=== PATIENT | male | born 1930 ===

== ENCOUNTER 2016-10-22 18:40 | Inpatient (IN) | payer MEDICARE, BC ==
[~2016-10-22] VITALS: Ht 180.3 cm; Wt 67.8 kg
--- NOTE | 2016-10-22 18:46 | NUR ---
patient is agitated, confused and got out of bed. not following directions
--- NOTE | 2016-10-22 19:17 | NUR ---
Júnior Duval watching patient in room
--- NOTE | 2016-10-22 19:18 | NUR ---
report given to Jason
--- NOTE | 2016-10-22 19:19 | NUR ---
Patient BIB private ambulance for Medical Clearance and GPS admission. Patient arrives on 5150 hold for GD. Per hold, patient has been treated for a GI BLEED and was refusing care and not eating. To room 4B. Medically Cleared by ERMD at this time.
[2016-10-22] MEDS ORDERED: ACET-2154 PO (19:21)
[2016-10-22] MEDS ORDERED: ENAL1.2515 IV (19:21)
[2016-10-22] MEDS ORDERED: LORA2VIA32 IJ (19:21)
[2016-10-22] MEDS ORDERED: CLON0.1T PO (19:21)
[2016-10-22] MEDS ORDERED: DIVA125T2 PO (19:21)
[2016-10-22] MEDS ORDERED: LORA1TAB PO (19:21)
[2016-10-22 19:45] VITALS: BP 161/97
--- NOTE | 2016-10-22 19:45 | NUR ---
Pt. admitted to GPS, under care of Dr. Tam Belongs List completed
[2016-10-22] MEDS ORDERED: ACETAMINOPHEN 325 MG TABLET PO PRN (20:30)
[2016-10-22] MEDS ORDERED: LORAZEPAM 0.5 MG TABLET PO PRN (20:30)
[2016-10-22] MEDS ORDERED: MAG HYDROX/AL HYDROX/SIMETH 30 ML LIQUID UDC PO PRN (20:30)
[2016-10-22] MEDS ORDERED: MAGNESIUM HYDROXIDE 30 ML LIQUID UDC PO PRN (20:30)
[2016-10-22] MEDS ORDERED: OLANZAPINE 10 MG VIAL IM ONE ×2 (21:15→21:49)
--- NOTE | 2016-10-22 22:00 | NUR ---
received to care, from the emergency room, a transfer from [facility], where he was being treated for GI bleed, but became non compliant and attempted to awol from the medical floor. according to his , he was living a mirela independently before this had happened. upon arrival, he was very restless and agitated. unable to follow directions. IM zyprexa 3 mg was given at 2145. as of 2199, he remains agitated and restless. will continue to monitor closely..
[2016-10-22] MEDS ORDERED: LORAZEPAM 2 MG/1 ML VIAL IM ONE (22:30)
--- NOTE | 2016-10-22 22:30 | NUR ---
remains restless, and agitated. attempting to climb out of xavier chair. unable to follow directions. IM ativan 1 mg given at this time. will continue to monitor closely.
[2016-10-22] MEDS ORDERED: LORAZEPAM 2 MG/1 ML VIAL ONE (22:41)
--- NOTE | 2016-10-22 23:10 | NUR ---
appears calmer, now. assisted to bed. 1;1 staff assigned at bedside, to monitor pt for safety.
--- NOTE | 2016-10-22 23:45 | NUR ---
appears to be asleep. no distress noted.
[2016-10-23] MEDS ORDERED: Z GUARD REMEDY PASTE 57 GM TUBE TOP PRN (03:00)
[2016-10-23] MEDS: Z GUARD REMEDY PASTE 57 GM TUBE TOP SCH ×2 (08:49→20:44)
[2016-10-23] MEDS: OLANZAPINE ZYDIS 5 MG TAB.RAPDIS PO PRN (15:32)
[2016-10-23 16:00] VITALS: BP 125/79
[2016-10-23] MEDS: DIVALPROEX SPRINKLE 125 MG CAP.SPRINK PO SCH ×2 (17:00→20:43)
--- NOTE | 2016-10-23 17:30 | NUR ---
GPS/RN- PATIENT VISITED BY TODAY, QUESTIONS AND CONCERNS ADDRESSED REGARDING HOSPITALIZATION AND MEDICATIONS. SHE ALSO REPORTED SHE WANTS TO TAKE HER HOME HOWEVER SHE IS IN PROCESS OF CLEANING OUT SOME OF THE STUFF IN THEIR HOME, REPORTED THEY HAVE SOME "HOARDING ISSUES" AND THEIR BEDROOM IS ON THE 2ND FLOOR, SAFETY ISSUE. REPORTED TO STAVE LOG RIPSAW OPERATOR AND WILL REPORT TO .
--- NOTE | 2016-10-23 17:30 | NUR ---
GPS./RN- patient sitting up in [facility] this evening with table, sitter at side, patient visiting with , report received from Martha/DARYL Nava, patient anxious and angry, speaking with patient as she was explaining he will go home soon, patient proceeded to pound on table with fist and then posturing with fist with , no injury to reported at this time, denies. continue to monitor patient unpredictable.
[2016-10-23] MEDS: LORAZEPAM 1 MG TABLET PO PRN ×2 (18:21→19:50)
--- NOTE | 2016-10-23 18:24 | NUR ---
1700 patient agitated, confused refused to take his depakote 125 mg po and a prn ativan 1 mg po in spite of the explanation.Will continue to monitor behavior.
[2016-10-23 20:12] VITALS: BP 116/81
[2016-10-23] MEDS ORDERED: ACETAMINOPHEN 325 MG TABLET PO PRN (21:30)
--- NOTE | 2016-10-23 22:00 | NUR ---
received to care, up in gerichair, appearing restless, difficult to redirect, 1;1 sitter at side, for safety. PRN ativan wa sgiven at 1950. by 2099, he was calmer, and more manageable. depakote was given at bedtime(pt refused at 1700). as of 2199, he remains up in the xavier chair. remains restless. will continue to monitor closely.
[2016-10-23] MEDS: TEMAZEPAM 7.5 MG CAPSULE PO PRN (22:46)
--- NOTE | 2016-10-23 23:00 | NUR ---
assisted to bed.
--- NOTE | 2016-10-24 00:13 | NUR ---
CARLOZ restoril given for insomnia Addendum: 10/24/16 at 0126 by BRENDA MACE LVN restoril given at 9332
--- NOTE | 2016-10-24 00:40 | NUR ---
appears to be asleep. no dsitress noted.
--- NOTE | 2016-10-24 06:00 | NUR ---
slept 6.0 hours, total. assisted with AM care, and shower. remains calm and cooperative. currently asleep in bed. no distress noted.
[2016-10-24 06:59] LABS: BASOPHILS % (AUTO) 0.1 % (0.0-2.0); EOSINOPHILS # (AUTO) 0.5 K/uL (0.0-0.7); HEMATOCRIT 42.9 % (40-50); HEMOGLOBIN 14.6 G/DL (14.0-18.0); LYMPHOCYTES # (AUTO) 3.1 K/UL (0.8-4.8); LYMPHOCYTES % (AUTO) 25.6 % (20.5-51.5); MEAN CORPUSCULAR HEMOGLOBIN 33.3 UUG (27.0-31.0); MEAN CORPUSCULAR HGB CONC 34 g/dL (32.0-37.0); MEAN CORPUSCULAR VOLUME 97.8 FL (82.0-92.0); MONOCYTES # (AUTO) 0.9 K/UL (0.1-1.30); MONOCYTES % (AUTO) 7.8 % (0.0-11.0); NEUTROPHILS # (AUTO) 7.6 K/UL (1.8-8.9); NEUTROPHILS % (AUTO) 62.5 % (38.5-71.5); PLATELET COUNT (AUTO) 204 K/UL (150-450); RED BLOOD CELL COUNT(AUTO) 4.39 MIL/UL (4.7-6.1); WHITE BLOOD COUNT (AUTO) 12.1 K/UL (4.0-11.2)
[2016-10-24 07:04] LABS: ALANINE AMINOTRANSFERASE 26 U/L (16-63); ALKALINE PHOSPHATASE 94 U/L (50-136); ASPARTATE AMINOTRANSFERASE 43 U/L (15-37); BILIRUBIN,TOTAL 0.8 mg/dL (0.2-1.0); CARBON DIOXIDE 30 mmol/L (21-32); CHLORIDE 108 mmol/L (98-107); CREATININE 1.2 mg/dL (0.6-1.3); GLUCOSE 92 mg/dL (74-106); MAGNESIUM 2.1 mg/dL (1.8-2.4); PHOSPHOROUS 3.9 mg/dL (2.5-4.9); POTASSIUM 3.3 mmol/L (3.5-5.1); TOTAL PROTEIN, SERUM 7.3 g/dL (6.4-8.2); UREA NITROGEN, BLOOD 19 mg/dL (7-18)
[2016-10-24 07:16] LABS: THYROID STIMULATING HORMONE 11.008 mIU/mL (0.358-3.740)
[2016-10-24 07:30] VITALS: BP 129/68
[2016-10-24 07:32] LABS: BAND % (MANUAL) 1 % (0-10); EOSINOPHILS % (MANUAL) 1 % (0-8); LYMPHOCYTES % (MANUAL) 34 % (20-40); MONOCYTES % (MANUAL) 7 % (2-10); NEUTROPHILS % (MANUAL) 57 % (42-75)
[2016-10-24] MEDS: Z GUARD REMEDY PASTE 57 GM TUBE TOP SCH ×2 (09:37→20:13)
[2016-10-24] MEDS: DIVALPROEX SPRINKLE 125 MG CAP.SPRINK PO SCH ×2 (11:16→16:50)
[2016-10-24] MEDS: LORAZEPAM 1 MG TABLET PO PRN ×2 (11:59→20:31)
--- NOTE | 2016-10-24 11:59 | NUR ---
PATIENT IS UP ON THE CHAIR IN THE DAY ROOM WITH HIS SITTER BUT HE WAS GETTING AGITATED AND DISORIENTED UPSET AT THE TV AND WHAT THE OTHERS ARE WATCHING UNABLE TO REDIRECT PATIENT AT THIS TIME SO HE WAS MEDICATED WITH ATIVAN ORDERED AND WILL CONTINUE TO OBSERVE
[2016-10-24] MEDS ORDERED: POTASSIUM CHLORIDE 20 MEQ TAB.PRT.SR PO ONE (12:00)
--- NOTE | 2016-10-24 12:04 | NUR ---
GPS.RN- Dr Oswald Matthew here to see patient , discussed current labs this am potassium 3.3 and TSH 11.008. Verbal orders received for Potassium Chloride 40meq PO once and Synthroid 25mcg daily.
--- NOTE | 2016-10-24 12:06 | NUR ---
GPS.RN- SKIN Dr Oswald Matthew here to see patient , discussed patient rash on back side, saw patient .no new orders, no concern for isolation at this time. patient denies any itching or discomfort.
--- NOTE | 2016-10-24 14:43 | NUR ---
GPS/RN- Dr Tam notified of living situation reported by , endorsed to social worker clinical as well about Home Health needed on discharge for follow up
--- NOTE | 2016-10-24 15:23 | NUR ---
DR BAKER HERE TO SEE PATIENT SPOKE WITH THE PATIENTS AT LENGTH OVER THE PHONE.HIS HOLD WAS RENEWED TO 14 DAY.
--- NOTE | 2016-10-24 15:40 | NUR ---
Initial discharge instructions: The patient resides at home with his [[id number] [place] [address]; [phone]]. JOHNSON spoke with the patient's Wilma Whyte [phone] who stated that she would like to take the patient upon upon discharge. JOHNSON will speak with patient, family, and MD regarding most appropriate discharge plans. SS will form a safe and proper discharge plan.
[2016-10-24 16:00] VITALS: BP 126/90
--- NOTE | 2016-10-24 17:46 | NUR ---
SITING UP ON THE CHAIR IN HIS ROOM EATING DINNER LOW ENERGY BUT IS COOPERATIVE AND COMPLIANT WITH HIS MEDICATIONS REMAIN ON ONE ON ONE SITTER FOR SAFETY AND WILL CONTINUE TO OBSERVE.
--- NOTE | 2016-10-24 18:23 | NUR ---
GPS/RN- Patient visiting with his this evening. patient sitting next to , holding patients hand, during conversation, patient anxious, sad and irritable, squeezing her right hand excessively, heard yell "ouch", some redness noted on her hand. patient behavior escalating at this time, believes is here to pick him up redirected. patient redirected as to why he hurt his , he verbalized "she hurt me first". patient denies any injury at this time. patient Wilma left. patient redirected again as to reason for admission and hold status and safety of being discharged home. Contacted Wilma thru cellphone, verbalized she is fine.
[2016-10-24 20:30] VITALS: BP 131/65
--- NOTE | 2016-10-25 01:21 | NUR ---
GPS: Pt.still awake at this time. Anxious,easily irritable when being re-directed. Confused,disoriented and disorganized. 1:1 sitter at bedside for safety. Refused sleeping pill when offered despite explanation of risks vs.benefits x3. Will continue to monitor behavior.
[2016-10-25] MEDS: LEVOTHYROXINE SODIUM 25 MCG TABLET PO SCH (06:18)
[2016-10-25 07:30] VITALS: BP 160/107
[2016-10-25] MEDS: CLONIDINE HCL 0.1 MG TABLET PO PRN (09:39)
[2016-10-25] MEDS: Z GUARD REMEDY PASTE 57 GM TUBE TOP SCH ×2 (09:40→20:15)
[2016-10-25] MEDS: DIVALPROEX SPRINKLE 125 MG CAP.SPRINK PO SCH ×2 (09:40→17:26)
[2016-10-25 15:00] VITALS: BP 106/75
[2016-10-25] MEDS: LORAZEPAM 1 MG TABLET PO PRN (19:58)
[2016-10-25 20:53] VITALS: BP 114/52
[2016-10-26] MEDS: LEVOTHYROXINE SODIUM 25 MCG TABLET PO SCH (06:13)
[2016-10-26 07:30] VITALS: BP 149/91
[2016-10-26] MEDS: DIVALPROEX SPRINKLE 125 MG CAP.SPRINK PO SCH ×2 (08:57→17:00)
[2016-10-26] MEDS: Z GUARD REMEDY PASTE 57 GM TUBE TOP SCH ×2 (09:00→20:25)
--- NOTE | 2016-10-26 09:00 | NUR ---
NSG PT REFUSED ALL AM MEDS, REMAINS GUARDED, ISOLATIVE, SITTER AT BEDSIDE ALL TIMES FOR SAFETY, JEREL NEEDS ATTENDED.
[2016-10-26] MEDS: LORAZEPAM 1 MG TABLET PO PRN (15:30)
--- NOTE | 2016-10-26 15:36 | NUR ---
NSG PT IS AGITATED, GOT 1MG OF ATIVAN, BUT PT REFUSED MED, ALL NEEDS ATTENDED TO BY SITTER.
[2016-10-26] MEDS ORDERED: POTASSIUM CHLORIDE 20 MEQ TAB.PRT.SR PO ONE (16:15)
[2016-10-26 17:08] VITALS: BP 140/88
--- NOTE | 2016-10-26 17:19 | NUR ---
PT REFUSED PM MEDS AND POTASSIUM, INFORMED PT HE NEEDED IT BUT REFUSED, VERY HOSTILE IN MANNER.
[2016-10-26 20:00] VITALS: BP 155/92
[2016-10-27] MEDS: LEVOTHYROXINE SODIUM 25 MCG TABLET PO SCH (06:47)
[2016-10-27 07:30] VITALS: BP 171/99
[2016-10-27 07:42] LABS: BASOPHILS # (AUTO) 0.1 K/uL (0.0-8.0); BASOPHILS % (AUTO) 0.8 % (0.0-2.0); EOSINOPHILS # (AUTO) 0.3 K/uL (0.0-0.7); EOSINOPHILS % (AUTO) 2.9 % (0.0-7.0); HEMATOCRIT 43.5 % (40-50); HEMOGLOBIN 14.6 G/DL (14.0-18.0); LYMPHOCYTES % (AUTO) 21.5 % (20.5-51.5); MEAN CORPUSCULAR HGB CONC 33 g/dL (32.0-37.0); MEAN CORPUSCULAR VOLUME 98.6 FL (82.0-92.0); MONOCYTES # (AUTO) 0.8 K/UL (0.1-1.30); NEUTROPHILS # (AUTO) 6.3 K/UL (1.8-8.9); NEUTROPHILS % (AUTO) 66.8 % (38.5-71.5); PLATELET COUNT (AUTO) 229 K/UL (150-450); RED BLOOD CELL COUNT(AUTO) 4.41 MIL/UL (4.7-6.1); WHITE BLOOD COUNT (AUTO) 9.5 K/UL (4.0-11.2)
[2016-10-27 07:49] LABS: CARBON DIOXIDE 30 mmol/L (21-32); CHLORIDE 108 mmol/L (98-107); GLUCOSE 102 mg/dL (74-106); POTASSIUM 3.7 mmol/L (3.5-5.1); UREA NITROGEN, BLOOD 12 mg/dL (7-18)
[2016-10-27] MEDS: Z GUARD REMEDY PASTE 57 GM TUBE TOP SCH ×2 (08:44→20:27)
[2016-10-27] MEDS: DIVALPROEX SPRINKLE 125 MG CAP.SPRINK PO SCH ×3 (08:45→18:10)
[2016-10-27 10:24] VITALS: BP 142/86
[2016-10-27 16:00] VITALS: BP 143/94
[2016-10-27] MEDS: CLONIDINE HCL 0.1 MG TABLET PO PRN ×2 (20:00→22:15)
[2016-10-27 20:18] VITALS: BP 165/85
[2016-10-27] MEDS: LORAZEPAM 1 MG TABLET PO PRN (20:23)
[2016-10-28] MEDS: LEVOTHYROXINE SODIUM 25 MCG TABLET PO SCH ×2 (06:46→06:48)
[2016-10-28] MEDS: Z GUARD REMEDY PASTE 57 GM TUBE TOP SCH ×2 (08:31→20:56)
[2016-10-28 08:48] VITALS: BP 169/92
[2016-10-28] MEDS: DIVALPROEX SPRINKLE 125 MG CAP.SPRINK PO SCH ×4 (09:01→17:00)
[2016-10-28] MEDS: AMLODIPINE 5 MG TABLET PO SCH (14:15)
[2016-10-28] MEDS: OLANZAPINE ZYDIS 5 MG TAB.RAPDIS PO PRN (15:25)
--- NOTE | 2016-10-28 15:28 | NUR ---
GPS: Nursing Notes: Thought Disorder: Continue to be labile, unpredictable behavior, refusing his antihypertensive behavior, believes that there is nothing wrong with him, disoriented, impaired judgment, loud and angry affect, paranoid behavior, refused to eat his lunch, stated, "when my gets here at 5pm, I will take my medications...", "I have a doctor's degree.. I don't need any pills..", poor anger management, gets easily irritable when redirected, unable to formulate a plan for self care, continue with treatment plan.
[2016-10-28] MEDS: CLONIDINE HCL 0.1 MG TABLET PO PRN (15:37)
[2016-10-28 16:05] VITALS: BP 172/119
[2016-10-28] MEDS: OLANZAPINE ZYDIS 5 MG TAB.RAPDIS PO SCH (21:00)
[2016-10-28] MEDS ORDERED: CLONIDINE-TTS 1 PATCH TD SCH (21:30)
[2016-10-28 22:00] VITALS: BP 195/134
[2016-10-28] MEDS ORDERED: CLONIDINE-TTS 1 PATCH TD ONE (22:16)
--- NOTE | 2016-10-28 23:30 | NUR ---
received to care, lying in bed, uncooperative, and resistive with care. 1;1 sitter at side, for safety. initially he refused to have his vital signs, checked. it was reported that he refused his antihypertensive medications last shift, and his last recorded b/p was 172/119, at 1600. b/p was finally obtained at 2200, with the assistance of hospital security, which was 195/134, hr 104. Dr Kaylan Combs was paged, and she ordered a catapres patch to be placed, which was done at 8. as of 2329, he remains intermittently awake, but refuses a blood pressure check. pt is calm, except when he is asked to do something. he then becomes aggressive, accusing staff of trying to kill him. no distress noted. assisted to the bathroom, as needed. refuses any food or drink offered. will continue to monitor closely.
--- NOTE | 2016-10-29 00:10 | NUR ---
appears to be asleep. no distress noted.
--- NOTE | 2016-10-29 06:00 | NUR ---
slept 1.5 hours., total. remains uncooperative, and verbally abusive. refused AM meds, and blood pressure check. is labile, and easy to agitate. 1;1 sitter remains at bedside. no distress noted.
[2016-10-29] MEDS: LEVOTHYROXINE SODIUM 25 MCG TABLET PO SCH (06:50)
[2016-10-29] MEDS: Z GUARD REMEDY PASTE 57 GM TUBE TOP SCH ×2 (08:17→20:08)
[2016-10-29] MEDS: OLANZAPINE ZYDIS 5 MG TAB.RAPDIS PO PRN (08:17)
[2016-10-29] MEDS: DIVALPROEX SPRINKLE 125 MG CAP.SPRINK PO SCH ×3 (08:17→16:46)
[2016-10-29] MEDS: AMLODIPINE 5 MG TABLET PO SCH (08:56)
[2016-10-29 09:30] VITALS: BP 142/101
[2016-10-29 20:00] VITALS: BP 150/72
[2016-10-29] MEDS: OLANZAPINE ZYDIS 5 MG TAB.RAPDIS PO SCH (20:07)
--- NOTE | 2016-10-29 22:00 | NUR ---
received to care, lying in bed, 1;1 sitter at bedside, pleasant, but guarded, upon approach. compliant with medications, vital sign assessment, and all other care rendered. as of 2199, he appears to be asleep. no distress noted. will continue to monitor closely.
[2016-10-30] MEDS: TEMAZEPAM 7.5 MG CAPSULE PO PRN (00:40)
--- NOTE | 2016-10-30 00:40 | NUR ---
PRN restoril given for insomnia, and restlessness.
--- NOTE | 2016-10-30 01:15 | NUR ---
appears to be asleep. no distress noted.
--- NOTE | 2016-10-30 06:00 | NUR ---
slept 8.25 hours, total. assisted with AM care, and shower. remains calm and cooperative. no distress noted.
[2016-10-30] MEDS: LEVOTHYROXINE SODIUM 25 MCG TABLET PO SCH (06:28)
[2016-10-30 08:00] VITALS: BP 143/83
[2016-10-30] MEDS: DIVALPROEX SPRINKLE 125 MG CAP.SPRINK PO SCH ×3 (08:43→16:50)
[2016-10-30] MEDS: AMLODIPINE 5 MG TABLET PO SCH (08:44)
[2016-10-30] MEDS: Z GUARD REMEDY PASTE 57 GM TUBE TOP SCH ×2 (08:44→20:37)
[2016-10-30] MEDS: OLANZAPINE ZYDIS 5 MG TAB.RAPDIS PO PRN (08:44)
[2016-10-30 16:00] VITALS: BP 104/68
[2016-10-30] MEDS ORDERED: OLANZAPINE ZYDIS 5 MG TAB.RAPDIS PO SCH (17:00)
[2016-10-30 20:36] VITALS: BP 148/78
[2016-10-30] MEDS: LORAZEPAM 1 MG TABLET PO PRN ×2 (20:37→23:15)
[2016-10-30] MEDS: OLANZAPINE ZYDIS 5 MG TAB.RAPDIS PO SCH (21:08)
--- NOTE | 2016-10-30 22:00 | NUR ---
received to care, lying in bed, 1;1 sitter at bedside, pleasant, but guarded, upon approach. initially refused his medications, vital sign assessment, but was compliant, after talking to his on the phone. as of 0, he remaind awake intermittently. no distress noted. will continue to monitor closely.
--- NOTE | 2016-10-30 23:15 | NUR ---
PRN ativan given for anxiety, and restlessness.
--- NOTE | 2016-10-30 23:40 | NUR ---
appears to be asleep. no distress noted.
[2016-10-31] MEDS: LEVOTHYROXINE SODIUM 25 MCG TABLET PO SCH (06:03)
[2016-10-31] MEDS: LORAZEPAM 1 MG TABLET PO PRN (06:03)
--- NOTE | 2016-10-31 06:03 | NUR ---
pt is awake, and restless. attempting to climb out of bed, and becoming aggressive, when redirected. he was placed in the xavier chair, and given PRN ativan, at this time. sitter remains at side. will continue to monitor.
--- NOTE | 2016-10-31 06:27 | NUR ---
appears calmer, now. slept 7.0 hours, total.
[2016-10-31] MEDS: AMLODIPINE 5 MG TABLET PO SCH (09:00)
[2016-10-31] MEDS: Z GUARD REMEDY PASTE 57 GM TUBE TOP SCH ×2 (09:00→20:44)
[2016-10-31] MEDS: DIVALPROEX SPRINKLE 125 MG CAP.SPRINK PO SCH ×3 (09:00→17:00)
[2016-10-31] MEDS ORDERED: OLANZAPINE ZYDIS 5 MG TAB.RAPDIS PO SCH (09:00)
[2016-10-31] MEDS ORDERED: LORAZEPAM 1 MG TABLET PO PRN (11:30)
[2016-10-31] MEDS ORDERED: LORAZEPAM 0.5 MG TABLET PO PRN (11:45)
[2016-10-31 15:00] VITALS: BP 110/69
[2016-10-31] MEDS: OLANZAPINE ZYDIS 5 MG TAB.RAPDIS PO SCH (20:40)
[2016-10-31 20:45] VITALS: BP 118/75
[2016-11-01] MEDS: LEVOTHYROXINE SODIUM 25 MCG TABLET PO SCH (06:21)
--- NOTE | 2016-11-01 06:38 | NUR ---
GPS: REMAIN CALM AND COOPERATIVE WITH MEDS AND CARE. SLEPT ONLY 1 HRS THROUGH THE NIGHT.PATIENT STATED I WAS SLEEPING WHOLE DAY. I AM OK TO BE AWAKE. CONTINUE ON 1:1 SITTER 2 BEDS SIDE FOR SAFETY ALL THE TIMES.
[2016-11-01] MEDS ORDERED: OLANZAPINE 10 MG VIAL IM ONE (07:45)
--- NOTE | 2016-11-01 07:45 | NUR ---
PATIENT AGITATED, YELLS, BANGS ON THE TABLE AND DEMANDS TO BE LET OUT. PT IS NOT REDIRECTABLE. pT YELLS "MY IS RIGHT OUT THERE AND I NEED TO GO THERE." PT ATTEMPTS TO STRIKE WHEN APPROACH. PT SAYS "I WILL BE BELLIGERENT IF YOU KEEP ME HERE! YOU ARE STEALING FROM ME!" ATTEMPTED TO GIVE PT PRN ATIVAN. PT GRABBED THE PILL AND WOULD NOT LET GO OF HIS FIST. EVENTUALLY RELEASED AFTER MULTIPLE PROMPTING. PT WOULD NOT TAKE PO MEDICATION. DR. BAKER WAS CONTACTED. ORDER FOR ZYPREXA 5MG IM ONE TIME WAS OBTAINED.
[2016-11-01] MEDS: Z GUARD REMEDY PASTE 57 GM TUBE TOP SCH ×2 (09:00→21:11)
[2016-11-01] MEDS: AMLODIPINE 5 MG TABLET PO SCH (09:00)
[2016-11-01] MEDS: DIVALPROEX SPRINKLE 125 MG CAP.SPRINK PO SCH ×2 (09:00→21:11)
[2016-11-01] MEDS: OLANZAPINE ZYDIS 5 MG TAB.RAPDIS PO SCH ×2 (09:00→21:11)
[2016-11-01 20:26] VITALS: BP 148/93
--- NOTE | 2016-11-01 21:37 | NUR ---
patient had a Chest X ray. awaiting for results.
[2016-11-02] MEDS: LEVOTHYROXINE SODIUM 25 MCG TABLET PO SCH (06:48)
[2016-11-02 07:30] VITALS: BP 96/45
[2016-11-02] MEDS: DIVALPROEX SPRINKLE 125 MG CAP.SPRINK PO SCH ×2 (08:25→21:00)
[2016-11-02] MEDS: AMLODIPINE 5 MG TABLET PO SCH (08:25)
[2016-11-02] MEDS: OLANZAPINE ZYDIS 5 MG TAB.RAPDIS PO SCH ×2 (08:26→21:00)
[2016-11-02] MEDS: Z GUARD REMEDY PASTE 57 GM TUBE TOP SCH ×2 (08:37→20:43)
[2016-11-02 16:02] VITALS: BP 93/47
[2016-11-02 20:25] VITALS: BP 111/55
[2016-11-03] MEDS: TEMAZEPAM 7.5 MG CAPSULE PO PRN (00:32)
[2016-11-03] MEDS: LEVOTHYROXINE SODIUM 25 MCG TABLET PO SCH (06:48)
[2016-11-03 07:30] VITALS: BP 119/72
[2016-11-03] MEDS: DIVALPROEX SPRINKLE 125 MG CAP.SPRINK PO SCH ×2 (08:20→21:00)
[2016-11-03] MEDS: OLANZAPINE ZYDIS 5 MG TAB.RAPDIS PO SCH ×2 (08:21→21:00)
[2016-11-03] MEDS: Z GUARD REMEDY PASTE 57 GM TUBE TOP SCH ×2 (08:21→21:00)
[2016-11-03] MEDS: AMLODIPINE 5 MG TABLET PO SCH (08:21)
[2016-11-03 20:17] VITALS: BP 150/94
[2016-11-04] MEDS: LEVOTHYROXINE SODIUM 25 MCG TABLET PO SCH (06:43)
[2016-11-04 07:09] LABS: BASOPHILS % (AUTO) 0.4 % (0.0-2.0); EOSINOPHILS # (AUTO) 0.4 K/uL (0.0-0.7); EOSINOPHILS % (AUTO) 3.4 % (0.0-7.0); HEMATOCRIT 41.2 % (40-50); HEMOGLOBIN 13.6 G/DL (14.0-18.0); LYMPHOCYTES % (AUTO) 17.9 % (20.5-51.5); MEAN CORPUSCULAR HEMOGLOBIN 32.5 UUG (27.0-31.0); MEAN CORPUSCULAR HGB CONC 33 g/dL (32.0-37.0); MONOCYTES # (AUTO) 0.8 K/UL (0.1-1.30); MONOCYTES % (AUTO) 7.4 % (0.0-11.0); NEUTROPHILS % (AUTO) 70.9 % (38.5-71.5); PLATELET COUNT (AUTO) 206 K/UL (150-450); RED BLOOD CELL COUNT(AUTO) 4.16 MIL/UL (4.7-6.1); WHITE BLOOD COUNT (AUTO) 11.2 K/UL (4.0-11.2)
[2016-11-04 07:16] LABS: CARBON DIOXIDE 31 mmol/L (21-32); CHLORIDE 107 mmol/L (98-107); CREATININE 1.2 mg/dL (0.6-1.3); GLUCOSE 93 mg/dL (74-106); MAGNESIUM 2.1 mg/dL (1.8-2.4); PHOSPHOROUS 2.9 mg/dL (2.5-4.9); POTASSIUM 3.8 mmol/L (3.5-5.1); UREA NITROGEN, BLOOD 24 mg/dL (7-18)
[2016-11-04 07:30] VITALS: BP 137/74
[2016-11-04] MEDS: DIVALPROEX SPRINKLE 125 MG CAP.SPRINK PO SCH (08:53)
[2016-11-04] MEDS: AMLODIPINE 5 MG TABLET PO SCH (08:53)
[2016-11-04] MEDS: Z GUARD REMEDY PASTE 57 GM TUBE TOP SCH (08:54)
[2016-11-04] MEDS: OLANZAPINE ZYDIS 5 MG TAB.RAPDIS PO SCH (08:54)
--- NOTE | 2016-11-04 13:02 | NUR ---
DC Note: The patient will be discharged today to [facility] ([facility]) [[address] [place] [address] ] via ambulance. JOHNSON spoke with Pb at the facility who stated that they will be accepting the patient today. JOHNSON spoke with the patient's Wilma Whyte [phone] who is aware and agreeable with the discharge plan. The patient will follow-up at the facility with cooler man Dr. Edmund Salas and psychiatrist Dr. Ashley Tam.
[2016-11-04 15:41] VITALS: BP 146/91
--- NOTE | 2016-11-04 17:00 | NUR ---
GPS: Nursing Notes: Discharge Notes: Patient is awake and responding to his name, disoriented to time and situation, following staff directions, compliant with his medications and cooperative with nursing care, denies any SI/HI, denies any AH/VH, denies any pain or discomfort, denies any SOB, discharge to [facility] at [address] [place] [address] , report given to Gretchen RN securities supervisor, transported to facility via ambulance, his took all his belongings with her. JOHNSON spoke with the patient's Wilma Whyte [phone] who is aware and agreeable with the discharge plan. The patient will follow-up at the facility with tread builder Dr. Edmund Salas and psychiatrist Dr. Ashley Tam for aftercare.
== END 2016-11-04 17:00 | DRG 885 ==
LOC: ER 18:40 → GPS 19:45
PROVIDERS: ADMIT Psychiatry & Neurology Psychosomatic Medicine
DX: F23 Brief psychotic disorder (principal); F02.81 Dementia in other diseases classified elsewhere, unspecified severity, with behavioral disturbance; G30.9 Alzheimer's disease, unspecified; Z86.74 Personal history of sudden cardiac arrest; E03.9 Hypothyroidism, unspecified; E78.5 Hyperlipidemia, unspecified; I25.2 Old myocardial infarction; Z85.828 Personal history of other malignant neoplasm of skin; I25.10 Atherosclerotic heart disease of native coronary artery without angina pectoris; Z95.5 Presence of coronary angioplasty implant and graft; N40.0 Benign prostatic hyperplasia without lower urinary tract symptoms; H91.90 Unspecified hearing loss, unspecified ear; J44.9 Chronic obstructive pulmonary disease, unspecified; K57.90 Diverticulosis of intestine, part unspecified, without perforation or abscess without bleeding; L60.3 Nail dystrophy
CPT/HCPCS: 36415; 71010; 83735; 84100; 84443; 85025; 97116; 97161; 97530; A4663; J2060; J2358